=== PATIENT | female | born 1990 | race Caucasian/White ===

== ENCOUNTER 2017-10-28 17:35 | Emergency (ER) | payer SELFPAY ==
--- NOTE | 2017-10-28 18:16 | EDPHYS ---
Physician Documentation [facility] Name: Adalgisa Davalos Age: 27 yrs Sex: Female : 1990 Arrival Date: 10/28/2017 Time: 17:38 Bed 28 Private MD: None, None ED Physician Sammy Álvarez HPI: 10/28 18:11 This 27 yrs old Female presents to ER via Ambulatory with complaints of gs Toothache. 18:11 The patient presents with broken tooth/teeth, pain. The problem is located in the lower gs right second bicuspid and lower right first molar. Onset: The symptoms/episode began/occurred 3 week(s) ago. Duration: The symptoms are continuous. Modifying factors: the symptoms are aggravated by chewing, cold fluids. Associated signs and symptoms: Pertinent negatives: dysphagia, fever, redness in area, swelling. Severity of symptoms: At their worst the symptoms were moderate, in the emergency department the symptoms are unchanged. The patient has experienced similar episodes in the past, a few times. saw dentist on abx ran out of t3, has appt with dentist tomorrow. 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 - Social history:: Smoking status: Patient uses tobacco products, denies chronic smoking, but will smoke occasionally. - Ebola Screening: : Patient denies travel to an Ebola-affected area in the 21 days before illness onset. ROS: 18:11 All other systems are negative. gs Exam: 18:11 Head/Face: Normocephalic, atraumatic. Neck: Trachea midline, no thyromegaly or masses gs palpated, and no cervical lymphadenopathy. Supple, full range of motion without nuchal rigidity, or vertebral point tenderness. No Meningismus. Cardiovascular: Regular rate and rhythm with a normal S1 and S2. No gallops, murmurs, or rubs. Normal PMI, no JVD. No pulse deficits. Respiratory: Lungs have equal breath sounds bilaterally, clear to auscultation and percussion. No rales, rhonchi or wheezes noted. No increased work of breathing, no retractions or nasal flaring. 18:11 Constitutional: The patient appears alert, awake. 18:11 ENT: Dental exam: dental caries, that is moderate, diffusely, fractured teeth are noted, diffusely, gum swelling, not appreciated. Vital Signs: 17:42 BP 139 / 91; Pulse 77; Resp 17; Temp 98.7(TE); Pulse Ox 100% on R/A; Pain 10/10; tw2 MDM: 17:53 Patient medically screened. 18:11 Differential diagnosis: dental caries, dental abscess. Data reviewed: vital signs, nurses notes. Response to treatment: There is no appreciated change of the patient's symptoms at this time, and as a result, I will discharge patient. Administered Medications: No medications were administered Disposition: 10/28/17 18:15 Discharged to Home. Impression: Encounter for screening, unspecified. - Condition is Stable. - Medication Reconciliation Form, Thank You Letter, Antibiotic Education, Prescription Opioid Use form. - Follow up: Private Physician; When: Tomorrow; Reason: Re-evaluation by your physician. Signatures: Sindi Lindsay RN RN tw2 Sammy Álvarez MD MD Robb Dawson RN RN rv Corrections: (The following items were deleted from the chart) 18:19 18:15 10/28/2017 18:15 Discharged to Home. Impression: Encounter for screening, rv unspecified. Condition is Stable. Forms are Medication Reconciliation Form, Thank You Letter, Antibiotic Education, Prescription Opioid Use. Follow up: Private Physician; When: Tomorrow; Reason: Re-evaluation by your physician.
--- NOTE | 2017-10-28 18:16 | ER ---
Nurse's Notes [facility] Name: Adalgisa Davalos Age: 27 yrs Sex: Female : 1990 Arrival Date: 10/28/2017 Time: 17:38 Bed 28 Private MD: None, None Diagnosis: Encounter for screening, unspecified Presentation: 10/28 17:41 Presenting complaint: Patient states: i have a tooth ache, on the right side, i have tw2 dentist appt tomorrow but i cant sleep because i am in pain. Transition of care: patient was not received from another setting of care. Onset of symptoms was October 28, 2017. Risk Assessment: Do you want to hurt yourself or someone else? Patient reports no desire to harm self or others. Initial Sepsis Screen: Does the patient meet any 2 criteria? No. Patient's initial sepsis screen is negative. Does the patient have a suspected source of infection? No. Patient's initial sepsis screen is negative. Care prior to arrival: None. 17:41 Method Of Arrival: Ambulatory tw2 17:41 Acuity: PATRIZIA 4 tw2 Triage Assessment: 18:01 General: Appears in no apparent distress. comfortable. EENT: Reports pain in right jaw rv and left jaw Pain is 10 out of 10 on a pain scale. 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 - Social history:: Smoking status: Patient uses tobacco products, denies chronic smoking, but will smoke occasionally. - Ebola Screening: : Patient denies travel to an Ebola-affected area in the 21 days before illness onset. Screenin:01 Abuse screen: Denies threats or abuse. Denies injuries from another. Nutritional rv screening: No deficits noted. Tuberculosis screening: No symptoms or risk factors identified. Fall Risk None identified. Assessment: 18:00 General: Appears in no apparent distress. comfortable, Behavior is calm, cooperative. rv Pain: Complains of pain in right side of the face Pain currently is 10 out of 10 on a pain scale. Neuro: Level of Consciousness is awake, alert, obeys commands, Oriented to person, place, time, situation. Cardiovascular: Capillary refill < 3 seconds. Respiratory: Airway is patent. GI: No signs and/or symptoms were reported involving the gastrointestinal system. : No signs and/or symptoms were reported regarding the genitourinary system. EENT: No deficits noted. Derm: Skin is intact. Vital Signs: 17:42 BP 139 / 91; Pulse 77; Resp 17; Temp 98.7(TE); Pulse Ox 100% on R/A; Pain 10/10; tw2 ED Course: 17:38 Patient arrived in ED. sb2 17:39 None, None is Private Physician. sb2 17:42 Triage completed. tw2 17:42 Arm band placed on. tw2 17:47 Sammy Álvarez MD is Attending Physician. 18:02 Patient has correct armband on for positive identification. Bed in low position. Call rv light in reach. Side rails up X 1. Adult w/ patient. Pulse ox on. NIBP on. 18:18 No provider procedures requiring assistance completed. Patient did not have IV access rv during this emergency room visit. Administered Medications: No medications were administered Outcome: 18:15 Discharge ordered by . 18:18 Eloped from waiting room, before seeing physician Time discovered patient gone: October at 18:15 18:18 Condition: unchanged 18:19 Patient left the ED. rv Signatures: Sindi Lindsay, RN RN tw2 Sammy Álvarez MD MD GaspervenkatEleanor sb2 Robb Dawson RN RN rv Corrections: (The following items were deleted from the chart) 18:02 18:00 Pain: Complains of pain in left side of the face Pain currently is 10 out of 10 rv on a pain scale. rv
== END 2017-10-28 18:19 | disposition home or self-care (01) ==
LOC: ER 17:35
DX: Z13.9 Encounter for screening, unspecified (principal); Z72.0 Tobacco use
CPT/HCPCS: 99282

== ENCOUNTER 2019-04-21 22:14 | Emergency (ER) | payer OTHER, SELFPAY ==
--- OUTSIDE RECORDS SUMMARY | 2019-04-21 22:15 | XMS REPORT ---
:1990 [facility] Address [address] [place] [address] [address] [place] [address] Care Team Providers Name Role Phone Unavailable Unavailable Unavailable Problems This patient has no known problems. Allergies, Adverse Reactions, Alerts This patient has no known allergies or adverse reactions. Medications This patient has no known medications.
--- OUTSIDE RECORDS SUMMARY | 2019-04-21 22:16 | XMS REPORT | Continuity of Care Document ---
:1990 Author Organization [facility] Address [address] [place] [address] Phone Unavailable Care Team Providers Name Role Phone PHYSICIAN, NO Primary Care Physician Unavailable Insurance Providers Guarantor Adalgisa Sheriff Address [address] [place] [address] Email NONE Payer Self Pay Insurance Subscriber's Name Adalgisa Sheriff Relationship Self / Same As Patient Group Number NA Group Name NA Advance Directives Directive Response Recorded Date/Time Advance Directive on File No 10/12/18 11:40am Patient/Family Given Education Material R/T Y - 10/12/18...[place] 10/12/18 11: 40am Directives? Chief Complaint and Reason for Visit Chief Complaint Female Urogenital Problems Reason for Visit Threatened in early Problems Active ProblemsNo active problem information available. Past Problems Medical Problem Onset Date Status Cellulitis of jaw, right Unknown Acute Dental infection Unknown Acute Pain, dental Unknown Acute Threatened in early Unknown Acute Medications Current Home Medications Medication Dose Units Route Directions Days Qty Instructions Start Date Clindamycin Hcl 300 Mg ORAL Every 8 Hours 30 Tablet 11/01/17 (Cleoci 300 Mgn) for 300 Mg Cap Cellulitis/Absc ess Hydrocodone-Acet 1 Tab ORAL Every 6 Hours 30 Tablet 11/01/17 aminophen As Needed as 10/325MG * needed for Pain ([place] 10/325MG *) 1 Tab Tab Social History Smoking Status Start Date Stop Date Current every day smoker Hospital Discharge Instructions No hospital discharge instruction information available. Plan of Care Discharge Date 10/12/18 2:30pm Instructions/Education Provided Threatened Miscarriage, [id number] First Trimester of , Fjla-ra-[id number] Forms Provided Portal Welcome Letter Prescriptions See Medication Section Referrals NO PHYSICIAN Additional Instructions/Education BED REST x 3 DAYS. IF ANY WORSENING IN CONDITION, SEEK IMMEDIATE MEDICAL ATTENTION. DRINK MORE FLUIDS TO STAY HYDRATED. 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 CAN TAKE DRAMAMINE (available O.T.C.) NEEDED FOR NAUSEA OR VOMITING IN Functional Status No functional status information available. Allergies, Adverse Reactions, Alerts No known allergies. Immunizations No immunization information available. Vital Signs Acute Vital Signs Vital Response Date/Time Blood Pressure 104/60 mm Hg 10/12/2018 2:30pm Pulse Pulse Rate (adult) 55 beats per minute (60 - 100) 10/12/2018 2:30pm Respiratory Rate 20 breaths per minute (10 - 24) 10/12/2018 2:30pm Temperature Source Oral 10/12/2018 2:30pm Height 5 ft 1 in 10/12/2018 11:40am Weight 109 lb 10/12/2018 11:40am Body Mass Index 20.6 kg/m^2 10/12/2018 11:40am Results Laboratory Results Test Name Result Units Flags Reference Collection Result Comments Date/Time Date/Time White Blood Count 7.6 K/ul 4.0-11.5 10/12/2018 10/12/2018 12:28pm 12:38pm Red Blood Count 3.84 M/ul 3.80-5.20 10/12/2018 10/12/2018 12:28pm 12:38pm Hemoglobin 11.5 g/dL 10.5-15.7 10/12/2018 10/12/2018 12:28pm 12:38pm Hematocrit 35.1 % 34.0-50.0 10/12/2018 10/12/2018 12:28pm 12:38pm Mean Corpuscular 91.4 fl 86-100 10/12/2018 10/12/2018 Volume 12:28pm 12:38pm Mean Corpuscular 29.9 pg 26.2-33.4 10/12/2018 10/12/2018 Hemoglobin 12:28pm 12:38pm Mean Corpuscular 32.8 g/dL 30-34 10/12/2018 10/12/2018 Hemoglobin Concent 12:28pm 12:38pm Red Cell 11.6 % L 12.0-15.5 10/12/2018 10/12/2018 Distribution Width 12:28pm 12:38pm Platelet Count 297 K/uL 165-450 10/12/2018 10/12/2018 12:28pm 12:38pm Mean Platelet 10.1 fL 9.4-12.6 10/12/2018 10/12/2018 Volume 12:28pm 12:38pm Neutrophils (%) 67.2 % 44.4-80.1 10/12/2018 10/12/2018 (Auto) 12:28pm 12:38pm Immature 0.4 % 0.0-0.4 10/12/2018 10/12/2018 Granulocyte % 12:28pm 12:38pm (Auto) Lymphocytes (%) 22.5 % 10.0-50.0 10/12/2018 10/12/2018 (Auto) 12:28pm 12:38pm Monocytes (%) 9.0 % 3.6-12.0 10/12/2018 10/12/2018 (Auto) 12:28pm 12:38pm Eosinophils (%) 0.4 % 0.0-5.4 10/12/2018 10/12/2018 (Auto) 12:28pm 12:38pm Basophils (%) 0.5 % 0.1-1.2 10/12/2018 10/12/2018 (Auto) 12:28pm 12:38pm Neutrophils # 5.07 K/uL 1.56-6.13 10/12/2018 10/12/2018 (Auto) 12:28pm 12:38pm Absolute Immature 0.0 K/uL 0.0-0.03 10/12/2018 10/12/2018 Granulocyte (auto 12:28pm 12:38pm Lymphocytes # 1.7 K/uL 1.18-3.74 10/12/2018 10/12/2018 (Auto) 12:28pm 12:38pm Monocytes # (Auto) 0.68 K/uL 0.24-0.86 10/12/2018 10/12/2018 12:28pm 12:38pm Eosinophils # 0.03 K/uL L 0.04-0.36 10/12/2018 10/12/2018 (Auto) 12:28pm 12:38pm Basophils # (Auto) 0.04 K/uL 0.01-0.08 10/12/2018 10/12/2018 12:28pm 12:38pm Nucleated Red 0 /100 0-0.2 10/12/2018 10/12/2018 Blood Cells % WBC 12:28pm 12:38pm Nucleated Red 0 K/uL 0 10/12/2018 10/12/2018 Blood Cells # 12:28pm 12:38pm Urine Color YELLOW 10/12/2018 10/12/2018 11:44am 12:46pm Urine Appearance SL CLOUDY A CLEAR 10/12/2018 10/12/2018 11:44am 12:46pm Urine Glucose (UA) NEGATIVE NEGATIVE 10/12/2018 10/12/2018 11:44am 12:46pm Urine Bilirubin NEGATIVE NEGATIVE 10/12/2018 10/12/2018 11:44am 12:46pm Urine Ketones TRACE NEGATIVE 10/12/2018 10/12/2018 11:44am 12:46pm Urine Specific 1.025 1.003-1.03 10/12/2018 10/12/2018 [place] 0 11:44am 12:46pm Urine Blood NEGATIVE NEGATIVE 10/12/2018 10/12/2018 11:44am 12:46pm Urine pH 6.500 5-9 10/12/2018 10/12/2018 11:44am 12:46pm Urine Protein TRACE NEGATIVE 10/12/2018 10/12/2018 11:44am 12:46pm Urine Urobilinogen NORMAL mg/dL 0.2-1.0 10/12/2018 10/12/2018 11:44am 12:46pm Urine Nitrate NEGATIVE NEGATIVE 10/12/2018 10/12/2018 11:44am 12:46pm Urine Leukocyte NEGATIVE NEGATIVE 10/12/2018 10/12/2018 Esterase 11:44am 12:46pm Urine RBC 1-5 /hpf 0-5 10/12/2018 10/12/2018 11:44am 12:46pm Urine WBC 1-5 /hpf 0-5 10/12/2018 10/12/2018 11:44am 12:46pm Urine Epithelial 15-19 /hpf 0-5 10/12/2018 10/12/2018 Cells 11:44am 12:46pm Urine Bacteria SMALL(1+) /hpf None 10/12/2018 10/12/2018 Detect 11:44am 12:46pm Urine Casts 20-29 /lpf H None 10/12/2018 10/12/2018 Detect 11:44am 12:46pm Urine Culture NO. 10/12/2018 10/12/2018 >10 EPITHELIAL CELLS/HPF. INDICATIVE OF CONTAMINATED URINE. Reflexed CONTAMINAT 11:44am 12:46pm CULTURE WILL NOT BE PERFORMED. PLEASE RECOLLECT IF CULTURE ED. IS DEEMED NECESSARY. Urine Mucus 1+ /lpf None 10/12/2018 10/12/2018 Detect 11:44am 12:46pm Urine Pathogenic Cellular /hpf A None 10/12/2018 10/12/2018 Casts casts Detect 11:44am 12:46pm (1-5) Random Glucose 87 mg/dL 74-106 10/12/2018 10/12/2018 12:28pm 12:51pm Blood Urea 8 mg/dL 6-20 10/12/2018 10/12/2018 Nitrogen 12:28pm 12:51pm Serum Osmolality 273 L 280-300 10/12/2018 10/12/2018 12:28pm 12:51pm Creatinine 0.4 mg/dL L 0.50-0.90 10/12/2018 10/12/2018 12:28pm 12:51pm Glomerular > 60.00 10/12/2018 10/12/2018 GFR RESULTS ARE REPORTED IN mL/min/1.73m2. Filtration Rate 12:28pm 12:51pm Calc Normal GFR: >60mL/min Moderately decreased GFR: 30-59 mL/min Severely decreased GFR: 15-29 mL/min Kidney Failure (or Dialysis): <15 mL/min The calculated eGFR is not valid for patients younger than 18 years or older than 75 years. BUN/Creatinine 20.0 12-20 10/12/2018 10/12/2018 Ratio 12:28pm 12:51pm Sodium Level 138 mmol/L 135-145 10/12/2018 10/12/2018 12:28pm 12:51pm Potassium Level 3.7 mmol/L 3.5-5.2 10/12/2018 10/12/2018 12:28pm 12:51pm Chloride Level 104 mmol/L 98-108 10/12/2018 10/12/2018 12:28pm 12:51pm Carbon Dioxide 24 mmol/L 21-32 10/12/2018 10/12/2018 Level 12:28pm 12:51pm Anion Gap 13.7 mEq/L 12-20 10/12/2018 10/12/2018 12:28pm 12:51pm Calcium Level 9.6 mg/dL 8.6-10.0 10/12/2018 10/12/2018 12:28pm 12:51pm Total Protein 6.6 g/dL 6.6-8.7 10/12/2018 10/12/2018 12:28pm 12:51pm Albumin 4.5 g/dL 3.5-5.2 10/12/2018 10/12/2018 12:28pm 12:51pm Globulin 2.1 gm/dL 10/12/2018 10/12/2018 12:28pm 12:51pm Albumin/Globulin 2.1 >1.0 10/12/2018 10/12/2018 Ratio 12:28pm 12:51pm Total Bilirubin 0.3 mg/dL 0.0-1.2 10/12/2018 10/12/2018 12:28pm 12:51pm Aspartate Amino 16 U/L 15-32 10/12/2018 10/12/2018 Transf (AST/SGOT) 12:28pm 12:51pm Alanine 10 U/L 0-33 10/12/2018 10/12/2018 Aminotransferase 12:28pm 12:51pm (ALT/SGPT) Total Alkaline 52 U/L 35-105 10/12/2018 10/12/2018 Phosphatase 12:28pm 12:51pm Beta [place]CG, 366[address].0 mIU/mL H 0-5 10/12/2018 10/12/2018 REFERENCE RANGES Quantitative 12:28pm 1:43pm NORMAL: NON- PREMENOPAUSAL POST-MENOPAUSAL <7 Weeks of Gestation Expected Result mIU/mL 3 5.8 - 71.2 4 9.5 - 750 5 217 - 7,138 6 158 - 31,795 7 3697 - 163,563 8 32,065 - 149,571 9 63,803 - 151,410 10 46,509 - 186,977 12 27,832 - 210,612 14 13,950 - 62,530 15 12,039 - 70,971 16 9,040 - 56,451 17 8,175 - 55,868 18 8,099 - 58,176 Urine HCG, POSITIVE NEG 10/12/2018 10/12/2018 Qualitative 11:44am 12:30pm Procedures Procedure Status Date Provider(s) Transvaginal obstetrical ultrasound Completed 10/12/18 ROSALINA NIELSEN MD Encounters Encounter Location Arrival/Admit Date Discharge/Depart Date Attending Provider Departed [place] 10/12/18 11:34am 10/12/18 2:30pm ROSALINA NIELSEN MD Emergency Room [facility] Recent Diagnosis
--- OUTSIDE RECORDS SUMMARY | 2019-04-21 22:16 | XMS REPORT | Summary of Care ---
:1990 Author Organization [facility] Address [address] [place] [address] Care Team Providers Name Role Phone Pcp, Patient Does Not Have A Primary Care Provider Encounter Details Date Type Department Care Team Description 10/14/2018 Orders Only [facility] Doctor Unassigned, No [address] [facility] [place] [address] [address] [place] [address] Allergies Not on Filedocumented as of this encounter (statuses as of 10/14/2018) Medications Not on filedocumented as of this encounter (statuses as of 10/14/2018) Active Problems Not on filedocumented as of this encounter (statuses as of 10/14/2018) Social History Tobacco Use Types Packs/Day Years Used Date Never Assessed Sex Assigned at Date Recorded Not on file Job Start Date Occupation Industry Not on file Not on file Not on file Travel History Travel Start Travel End No recent travel history available. documented as of this encounter Last Filed Vital Signs Not on filedocumented in this encounter Plan of Treatment Date Type Specialty Care Team Description 10/14/2018 Initial Visit [facility] Rosy Dill, CUTTING TABLE OPERATOR [address] [place] [address] [phone] Health Maintenance Due Date Last Done Comments VARICELLA VACCINES (1 of 2 - 13+ 2003 2-dose series) DTaP,Tdap,and Td Vaccines (1 - 2009 Tdap) PAP SMEAR 2011 INFLUENZA VACCINE 11/13/2018 PNEUMOCOCCAL 0-64 YEARS COMBINED Aged Out No longer eligible based on SERIES patient's age to complete this topic documented as of this encounter Procedures Procedure Name Priority Date/Time Associated Diagnosis Comments NOTICE OF PRIVACY Routine 10/14/2018 1:20 PM CDT PRACTICES documented in this encounter Results Not on filedocumented in this encounter Insurance Payer Benefit Plan Subscriber ID Effective Phone Address Type / Group Dates MEDICAID MEDICAID PENDING Effective for [address] [place] [address] Pending PEND[place] [address] [facility] MEDICAID OF xxxxxxxxx 2018-Pres [phone] [id number] Medicaid [place] ent [address] [place] [address] documented as of this encounter
--- OUTSIDE RECORDS SUMMARY | 2019-04-21 22:16 | XMS REPORT | Summary of Care ---
:1990 Author Organization [facility] Address [address] [place] [address] Care Team Providers Name Role Phone Pcp, Patient Does Not Have A Primary Care Provider Reason for Referral (Routine) Status Reason Specialty Diagnoses / Referred By Referred To Procedures Contact Contact New Request Maternal Diagnoses High-risk in first trimester Rosy Dill Medicine Procedures CONSULT MATERNAL MEDICINE ULTRASOUND Preferred Location: RITO Valentino [address] [facility] [place] [address] Reason for Visit Reason Comments New OB Visit Encounter Details Date Type Department Care Team Description 10/14/2018 [facility] High-risk in first trimester (Primary Dx); Visit [facility] Body mass index (BMI) of 19.0 to 19.9 in adult; [address] History of delivery, currently ; [facility] History of delivery; [address] [place], [place] with inconclusive viability, single or unspecified fetus [phone] Allergies No Known Allergiesdocumented as of this encounter (statuses as of 10/14/2018) Medications Medication Sig Dispensed Refills Start Date End Date Status PNV 67-iron Take 1 capsule 30 capsule 11 10/14/2018 Active ps-folate by mouth no.1-dha (VITAFOL daily. ULTRA) 29 mg iron- 1 mg-200 mg CapIndications: High-risk in first trimester vit Take by 0 10/14/2018 Discontinued calc,iron,folic mouth. ( VITAMIN ORAL) documented as of this encounter (statuses as of 10/14/2018) Active Problems Problem Noted Date High-risk in first trimester 10/14/2018 Body mass index (BMI) of 19.0 to 19.9 in adult 10/14/2018 History of delivery, currently 10/14/2018 History of delivery 10/14/2018 Overview: At 35 weeks, patient reports was on NST and not reactive and intolerance to induction, no history of PTL or PPROM Estimated Date of Delivery Comments Yes 06/08/2019 Based on last menstrual period of 09/01/2018 (Approximate) documented as of this encounter (statuses as of 10/14/2018) Social History Tobacco Use Types Packs/Day Years Used Date Former Smoker Cigarettes Quit: 10/2017 Smokeless Tobacco: Never Used Alcohol Use Drinks/Week oz/Week Comments Never Alcohol Habits Answer Date Recorded How often do you have a drink containing alcohol? Never 10/14/2018 How many drinks containing alcohol do you have on a typical Not asked day when you are drinking? How often do you have six or more drinks on one occasion? Not asked Estimated Date of Delivery Comments Yes 06/08/2019 Based on last menstrual period of 09/01/2018 (Approximate) Sex Assigned at Date Recorded Not on file Job Start Date Occupation Industry Not on file Not on file Not on file Travel History Travel Start Travel End No recent travel history available. documented as of this encounter Last Filed Vital Signs Vital Sign Reading Time Taken Comments Blood Pressure 90/58 10/14/2018 1:39 PM CDT Pulse 60 10/14/2018 1:39 PM CDT Temperature 37.1 C (98.8 F) 10/14/2018 1:39 PM CDT Respiratory Rate 18 10/14/2018 1:39 PM CDT Oxygen Saturation - - Inhaled Oxygen Concentration - - Weight 47.3 kg (104 lb 6 oz) 10/14/2018 1:39 PM CDT Height 154.9 cm (5' 1") 10/14/2018 1:39 PM CDT Body Mass Index 19.72 10/14/2018 1:39 PM CDT documented in this encounter Progress Notes Rosy Dill FNP - 10/14/2018 1:30 PM CDT Chief complaint: Chief Complaint Patient presents with New OB Visit HPI CC: Initial Visit Adalgisa Davalos is a 28 year old, , /White female. Patient's last menstrual period was 09/01/2018 (approximate). She is 6w1d with an intrauterine . Her Estimated Date of Delivery: 06/08/19. She is being seen today for her first obstetrical visit. Pt did go to [facility] ER on 10/12/18 for spotting and cramping. She brings an ultrasound report today, see below. She has no complaints today. Denies current physical, emotional or sexual abuse. Patient denies recent foreign travel. Histories OB History Para Term AB Living 2 1 1 1 SAB TAB Ectopic Multiple Live Births 1 # Outcome Date GA Lbr Keshav/2nd Weight Sex Delivery Anes PTL Lv 2 Current 1 04/16/07 35w0d 4 lb 5 oz (1.956 kg) F , V RATNA Past Medical History: Diagnosis Date Anemia ongoing, Family History Problem Relation Age of Onset No Significant Medical Problems Mother No Significant Medical Problems Sister No Significant Medical Problems Brother No Significant Medical Problems Maternal Aunt Cancer Maternal Uncle Diabetes Maternal Uncle Other - see comments Maternal Uncle copd Cancer Maternal Grandmother Other - see comments Maternal Grandmother copd Heart Maternal Grandfather Diabetes Maternal Grandfather Family Status Relation Name Status Mo Alive Fa Other unknown Sis Alive Bro Alive MAunt (Not Specified) MUnc PAunt Other PUnc Other MGMo Alive MGFa Alive Past Surgical History: Procedure Laterality Date SECTION 04/16/2007 Social History Socioeconomic History Marital status: Single Spouse name: Not on file Number of children: Not on file Years of education: Not on file Highest education level: Not on file Occupational History Not on file Social Needs Financial resource strain: Not on file Food insecurity: Worry: Not on file Inability: Not on file Transportation needs: Medical: Not on file Non-medical: Not on file Tobacco Use Smoking status: Former Smoker Types: Cigarettes Last attempt to quit: 10/2017 Years since quittin.0 Smokeless tobacco: Never Used Substance and Sexual Activity Alcohol use: Never Frequency: Never Drug use: Never Sexual activity: Yes Partners: Male control/protection: None Comment: last sexual intercourse 10/07/2018 Lifestyle Physical activity: Days per week: Not on file Minutes per session: Not on file Stress: Not on file Relationships Social connections: Talks on phone: Not on file Gets together: Not on file Attends yazidi service: Not on file Active member of club or organization: Not on file Attends meetings of clubs or organizations: Not on file Relationship status: Not on file Intimate partner violence: Fear of current or ex partner: Not on file Emotionally abused: Not on file Physically abused: Not on file Forced sexual activity: Not on file Other Topics Concern Not on file Social History Narrative Patient lives alone with daughter. Confucianist preference: Tenriism. Pt has not pets in the home. Social History Substance and Sexual Activity Sexual Activity Yes Partners: Male control/protection: None Comment: last sexual intercourse 10/07/2018 Genetic Screen Autism / Mental Retardation: No Milena Disease: No Congenital Heart Defect: No Cystic Fibrosis: No Down Syndrome: No Familial Dysautonomia: No Hemophilia or other Blood Disorders: No [place] Chorea: No Maternal Metabolic Disorder--specify (eg. Type 1 Diabetes, PKU): No Muscular Dystrophy: No Neural Tube Defect: No Recurrent Loss or a Stillbirth: No Sickle Cell Disease or Trait: No Abdiaziz Sachs: No Teratological Substances (specify type & strength/dose) since LMP: No Thalassemia: No Other Inherited Genetic or Chromosomal Disorder (specify): No No Significant History of Genetic Disorders: No Significant History of Genetic Disorders Labs Labs are pending. Radiology Radiology pending. I have reviewed the patient's radiology. ER US from 10/12/18 10/12/18 Normal appearance of intrauterine gestational sac. No evidence of subchorionic hemorrhage. No pole is visualized. Gestational sac c/w 6w1d gestation. No uterine or ovarian abnormality Allergies Adalgisa has No Known Allergies. Medications Adalgisa has a current medication list which includes the following prescription(s) : vit calc,iron,folic. Review of Systems Constitutional: Negative. Negative for appetite change, fatigue and fever. HENT: Negative. Eyes: Negative. Negative for visual disturbance. Respiratory: Negative. Breasts: Negative. Cardiovascular: Negative. Negative for palpitations and leg swelling. Gastrointestinal: Negative. Negative for abdominal pain, constipation, diarrhea , nausea and vomiting. Genitourinary: Negative. Negative for dysuria, vaginal bleeding, vaginal discharge and pelvic pain. Musculoskeletal: Negative. Skin: Negative. Negative for rash. Neurological: Negative. Negative for dizziness, light-headedness and headaches. Psychiatric/Behavioral: Negative. Endocrine: Endocrine negative BP 90/58 (BP Location: Right arm, Patient Position: Sitting, BP CUFF SIZE: Adult Small) | Pulse 60| Temp 37.1 C (98.8 F) (Oral) | Resp 18 | Ht 5' 1 " (1.549 m) | Wt 104 lb 6 oz (47.3 kg) | LMP 09/01/2018 (Approximate) | BMI 19.72 kg/m Pregravid BMI: 20.6 Physical Exam Vitals reviewed. Constitutional: She is oriented to person, place, and time. She appears well- developed and well-nourished. Her body habitus is normal. See flowsheet Neck: No thyroid nodules and no thyromegaly palpated. Cardiovascular: Regular rate and rhythm. No murmur auscultated. No peripheral edema present. Pulmonary/Chest: Breath sounds clear to auscultation. Normal inspiratory effort. Abdominal: Abdomen is soft. No mass palpated. No tenderness present. There is no hepatosplenomegaly. Neuro/Psychiatric: She has a normal mood and affect. She is oriented to person, place, and time. Skin: Skin normal. No lesion and no rash present. Tattoos and multiple piercings present Breast: Right breast exhibits no mass, no nipple discharge and no tenderness. Left breast exhibits no mass, no nipple discharge and no tenderness. Normal left breast and normal right breast External genitalia: Normal external genitalia appropriate for age. No labial lesion. Bladder: No tenderness. Normal bladder Vagina:Normal vagina. No lesion inspected. No abnormal vaginal discharge found. Cervix: Normal cervix. No lesion. No tenderness and no discharge present. Uterus: Uterus is normal size, normal position and non-tender. Normal uterus Adnexa: Right adnexa without tenderness. Left adnexa without tenderness. Normal left adnexa and normal right adnexa PHYSICAL: General Exam: HEENT: Normal Thyroid: Normal Lymph Node: Normal Neurological: Normal Heart: Normal Lungs: Normal Breasts: Normal Abdomen: Normal Skin: Normal Extremities: Normal Pelvic Exam: Vulva: Normal Vagina: Normal Cervix: Normal SVE closed/thick/high Membrane status: Intact Uterus: 6 Weeks Adnexa: Normal Rectum: Normal Spines: Average Subpubic Arch: Normal Assessment/Plan 1. High-risk in first trimester 6w1d by LMP and ER US TWG discussed Discussed use of Deet Repellent Initiate Vitamins Increase Fluid Intake. Minimum of 8 water bottles daily. Viability/dating ultrasound ordered. Pt declines first trimester screen. - POCT TEST - POCT URINALYSIS W/O SPECIFIC GRAVITY - GLUCOSE 1 HOUR POST PRANDIAL - CBC WITH DIFF - HEPATITIS B SURFACE ANTIGEN - HIV 1/2 AG-AB WITH REFLEX - WORKUP, BLOOD BANK - RUBELLA SCREEN (ZOE) IGG - URINE CULTURE - VZV ANTIBODY SCREEN - GALV ONLY - SYPHILIS IGG/IGM - POCT URINALYSIS W/O SPECIFIC GRAVITY; Standing - CBC WITH DIFFERENTIAL - PAP Smear-Liquid Based - GC & CHLAMYDIA AMPLIFIED ASSAY - TRICHOMONAS AMPLIFIED ASSAY - PNV 67-iron ps-folate no.1-dha (VITAFOL ULTRA) 29 mg iron- 1 mg-200 mg Cap; Take 1 capsule by mouth daily. Dispense: 30 capsule; Refill: 11 - CONSULT MATERNAL MEDICINE ULTRASOUND Preferred Location: [place] 2. Body mass index (BMI) of 19.0 to 19.9 in adult 3. History of delivery, currently C/S x 1 for intolerance. Briefly discussed ERCS vs TOLAC, continue to address at future visits. 4. History of delivery Pt reports was being monitored routinely in previous , at 35 weeks the baby's heart rate was concerning so they tried to induce her, intolerance to labor ending in delivery. No history of PTL or PPROM. 5. with inconclusive viability, single or unspecified fetus Gestational sac at 6w1d with no pole on ultrasound report provided by patient today. Denies any bleeding or cramping at this time. Follow up ultrasound ordered Return to clinic in 4 weeks. Discussed treatment options. Medications as ordered. Reviewed patient instructions and provided printed copy. at 6w1d This visit did not involve counseling and coordination that comprised more than 50% of the visit time. Milena Lema RN - 10/14/2018 1:30 PM CDTPatient is 28 year old female here for current . Patient is . 1) Previous delivery methods in [place] 2) Patient is not experiencing cramping 3) Patient is not experiencing bleeding. 4) LMP 5) Last Pap was: unknown Results: unknown 6) Have you had a flu vaccine this season? No 7) PPD candidate? No 8) Patient has no complaints at this time. Patient did have spotting and cramping went to ER on 10/12/2018. US report given. 9) Patient denies history of physical, emotional, or sexual abuse. Patient states she currently feels safe at home. NOB packet given and reviewed with patient. documented in this encounter Plan of Treatment Date Type Specialty Care Team Description 11/11/2018 Routine Visit OB Satellites Rosy Dill, SCHOOL ADJUSTMENT COUNSELOR [address] [place] [address] [phone] Name Type Priority Associated Diagnoses Date/Time GLUCOSE 1 HOUR POST LAB Routine High-risk in 10/14/2018 2:41 PM PRANDIAL first trimester CDT CBC WITH DIFF LAB Routine High-risk in 10/14/2018 2:41 PM first trimester CDT HEPATITIS B SURFACE LAB Routine High-risk in 10/14/2018 2:41 PM ANTIGEN first trimester CDT HIV 1/2 AG-AB WITH REFLEX LAB Routine High-risk in 10/14/2018 2: 41 PM first trimester CDT RUBELLA SCREEN (ZOE) IGG LAB Routine High-risk in 10/14/2018 2 :41 PM first trimester CDT URINE CULTURE LAB Routine High-risk in 10/14/2018 2:46 PM first trimester CDT VZV ANTIBODY SCREEN LAB Routine High-risk in 10/14/2018 2:41 PM first trimester CDT GALV ONLY - SYPHILIS LAB Routine High-risk in 10/14/2018 2:41 PM IGG/IGM first trimester CDT CBC WITH DIFFERENTIAL LAB Routine High-risk in 10/14/2018 2:41 PM first trimester CDT PAP Smear-Liquid Based LAB Routine High-risk in 10/14/2018 2:46 PM first trimester CDT GC & CHLAMYDIA AMPLIFIED LAB Routine High-risk in 10/14/2018 2: 46 PM ASSAY first trimester CDT TRICHOMONAS AMPLIFIED LAB Routine High-risk in 10/14/2018 2:46 PM ASSAY first trimester CDT Name Type Priority Associated Diagnoses Order Schedule WORKUP, BLOOD LAB Routine High-risk in Ordered: 2018 BANK first trimester POCT URINALYSIS W/O LAB Routine High-risk in 20 Occurrences starting SPECIFIC GRAVITY first trimester 10/14/2018 until 10/15/2019 Health Maintenance Due Date Last Done Comments VARICELLA VACCINES (1 of 2 - 13+ 2003 2-dose series) DTaP,Tdap,and Td Vaccines (1 - 2009 Tdap) PAP SMEAR 2011 INFLUENZA VACCINE 11/13/2018 PNEUMOCOCCAL 0-64 YEARS COMBINED Aged Out No longer eligible based on SERIES patient's age to complete this topic documented as of this encounter Procedures Procedure Name Priority Date/Time Associated Comments Diagnosis POCT URINALYSIS W/O Routine 10/14/2018 1:46 PM High-risk Results for this SPECIFIC GRAVITY CDT in first trimester procedure are in the results section. POCT TEST Routine 10/14/2018 1:46 PM High-risk Results for this CDT in first trimester procedure are in the results section. documented in this encounter Results POCT URINALYSIS W/O SPECIFIC GRAVITY (10/14/2018 1:46 PM CDT) POCT PH U 5 5 - 8 mg/dl POCT U LEUK EST neg Negative - Negative POCT U NIT neg Negative - Negative POCT U PROT neg Negative - Negative POCT U GLU neg Negative - Negative POCT U KETONE neg Negative - Negative POCT U BLD neg Negative - Negative Specimen Urine - URINE, CLEAN CATCH POCT TEST (10/14/2018 1:46 PM CDT) POCT PREG Positive On board controls acceptable Yes with C Line POCT PREG LOT # POCT PREG TEST DATE Specimen Urine - URINE, CLEAN CATCH documented in this encounter Visit Diagnoses Diagnosis High-risk in first trimester - Primary Body mass index (BMI) of 19.0 to 19.9 in adult History of delivery, currently Previous delivery, unspecified as to episode of care or not applicable History of delivery with inconclusive viability, single or unspecified fetus documented in this encounter Insurance Payer Benefit Plan / Subscriber ID Effective Dates Phone Address Type Group [facility] MEDICAID OF xxxxxxxxx 2018-Present [phone] [place] [id number] [place] [phone] documented as of this encounter Advance Directives Name Relationship Healthcare Agent Relationship Communication Letyfredy Davalos Aunt Primary healthcare agent
--- OUTSIDE RECORDS SUMMARY | 2019-04-21 22:16 | XMS REPORT | Summary of Care ---
:1990 Author Organization [facility] Address [address] [place] [address] Care Team Providers Name Role Phone Pcp, Patient Does Not Have A Primary Care Provider Reason for Referral (Routine) Status Reason Specialty Diagnoses / Referred By Referred To Procedures Contact Contact New Request Maternal Diagnoses High-risk in first trimester Rosy Dill Medicine Procedures CONSULT MATERNAL MEDICINE ULTRASOUND Preferred Location: R[facility] Valentino [address] [facility] [place] [address] Reason for Visit Reason Comments New OB Visit Encounter Details Date Type Department Care Team Description [facility]/14[facility]2018 [facility] High-risk in first trimester (Primary Dx); Visit RITO Valentino Body mass index (BMI) of 19.0 to 19.9 in adult; [address] History of delivery, currently ; [facility] History of delivery; [address] [place], [place] with inconclusive viability, single or unspecified fetus [phone] [phone] Allergies No Known Allergiesdocumented as of this [...] first obstetrical visit. Pt did go to [facility] ER on 10/12/18 for spotting and cramping. [...] file Gets together: Not on file Attends roman catholic service: Not on file Active member of [...] History Narrative Patient lives alone with daughter. Cheondoism preference: [employer]aritan. Pt has not pets in the home. Social History Substance and Sexual Activity Sexual Activity Yes Partners: Male control/protection: None Comment: last sexual intercourse 10/07/2018 Genetic Screen Autism / Mental Retardation: No Milena Disease: No Congenital Heart Defect: No Cystic Fibrosis: No Down Syndrome: No Familial Dysautonomia: No Hemophilia or other Blood Disorders: No [place] Chorea: No Maternal Metabolic Disorder--specify (eg. Type [...] - CONSULT MATERNAL MEDICINE ULTRASOUND Preferred Location: [place] 2. Body mass index (BMI) of 19.0 [...] is . 1) Previous delivery methods in [place] 2) Patient is not experiencing cramping 3) [...] 11/11/2018 Routine Visit OB Satellites Rosy Dill, FARMWORKER [employer]IED [employer]OPS [address] [place] [address] [phone] Name Type Priority Associated Diagnoses Date/Time GLUCOSE [...] ID Effective Dates Phone Address Type Group [facility] MEDICAID OF xxxxxxxxx 2018-Present [phone] [address] [place] [id number] [place] [phone] documented as of this encounter Advance Directives Name Relationship Healthcare Agent Relationship Communication Letyfredy Davalos Aunt Primary healthcare agent
--- OUTSIDE RECORDS SUMMARY | 2019-04-21 22:16 | XMS REPORT | Summary of Care ---
:1990 Author Organization [facility] Address [address] [place] [address] Care Team Providers Name Role Phone Rosy DillP Primary Care Provider Reason for Visit Reason Comments ULTRASOUND (Routine) Status Reason Specialty Diagnoses / Referred By Referred To Procedures Contact Contact New Request Maternal Diagnoses High-risk in first trimester Rosy Dill Medicine Procedures CONSULT MATERNAL MEDICINE ULTRASOUND Preferred Location: [facility] Valentino [address] [place] [address] Encounter Details Date Type Department Care Team Description 11/10/2018 Extension Service Advisor Visit [facility] Maternal care for scar from previous delivery, unspecified prior delivery type; Ultrasound- [place] Geneutrouvelis, Uterine size-date discrepancy in first trimester [address] [place], [place] [address] [facility] [id number] [place] [address] Allergies No Known Allergiesdocumented as of this encounter (statuses as of 11/10/2018) Medications Medication Sig Dispensed Refills Start Date End Date Status PNV 67-iron ps-folate Take 1 capsule by 30 capsule 11 10/14/2018 Active no.1-dha (VITAFOL mouth daily. ULTRA) 29 mg iron- 1 mg-200 mg CapIndications: High-risk in first trimester documented as of this encounter (statuses as of 11/10/2018) Active Problems Problem Noted Date Rubella non-immune status, antepartum 10/17/2018 Susceptible to varicella (non-immune), currently 10/17/2018 High-risk in first trimester 10/14/2018 Body mass [...] as of this encounter (statuses as of 11/10/2018) Social History Tobacco Use Types Packs/Day Years Used Date Never Assessed Estimated Date of Delivery Comments Yes 06/08/2019 [...] Description 11/11/2018 Routine Visit OB Satellites Rosy Dlil, BUSINESS PERFORMANCE SPECIALIST [address] [facility] [place] [address] [phone] Health Maintenance Due Date Last Done Comments VARICELLA VACCINES (1 of 2 - 13+ 2003 2-dose series) DTaP,Tdap,and Td Vaccines (1 - 2009 Tdap) INFLUENZA VACCINE (#1) 2018 PAP SMEAR 10/14/2021 10/14/2018 PNEUMOCOCCAL 0-64 YEARS COMBINED Aged Out No longer eligible based on SERIES patient's age to complete this topic documented as of this encounter Results Not on filedocumented in this encounter Visit Diagnoses Diagnosis Maternal care for scar from previous delivery, unspecified prior delivery type Uterine size-date discrepancy in first trimester Uterine size date discrepancy, antepartum condition or complication documented in this encounter Insurance Payer Benefit Plan / Subscriber ID Effective Phone Address Type Group [facility] xxxxxxxxx 2018-Pj SEGUNDO Medicaid HEALTH CHOICE - HEALTH [place] [id number] MANAGED MEDICAID [place], [place] [phone] documented as of this encounter Advance Directives Name Relationship Healthcare Agent Relationship Communication Letyfredy Davalos Aunt Primary healthcare agent
--- OUTSIDE RECORDS SUMMARY | 2019-04-21 22:17 | XMS REPORT | Summary of Care ---
:1990 Author Organization [facility] Address [address] [place] [address] Care Team Providers Name Role Phone Rosy DillP Primary Care Provider Reason for Visit Reason Comments ULTRASOUND (Routine) Status Reason Specialty Diagnoses / Referred By Referred To Procedures Contact Contact New Request Maternal Diagnoses High-risk in first trimester Rosy Dill Medicine Procedures CONSULT MATERNAL MEDICINE ULTRASOUND Preferred Location: R[facility]O Valentino [address] [place] [address] Encounter Details Date Type Department Care Team Description 11/10/2018 Destination Imagination Coordinator Visit [facility] Maternal care for scar from previous delivery, unspecified prior delivery type; Ultrasound- [place] Geneutrouvelis, Uterine size-date discrepancy in first trimester [address] [place], [place] [address] [facility] [address] [id number] [place] [address] Allergies No Known Allergiesdocumented as [...] 11/11/2018 Routine Visit OB Satellites Rosy Dill, BLIND LACER [address] [email or web address] [place] [address] [phone] Health Maintenance Due Date Last Done Comments [...] ID Effective Phone Address Type Group [facility] xxxxxxxxx 2018-Pj SEGUNDO Medicaid HEALTH CHOICE - HEALTH CHOICE nt [id number] MANAGED MEDICAID [place], [place] [id number] documented as of this encounter Advance Directives Name Relationship Healthcare Agent Relationship Communication Letyfredy Davalos Aunt Primary healthcare agent
--- OUTSIDE RECORDS SUMMARY | 2019-04-21 22:17 | XMS REPORT | Summary of Care ---
:1990 Author Organization [facility] Address [address] [place] [address] Care Team Providers Name Role Phone Rosy Dill Primary Care Provider Reason for Visit Reason Comments Care Encounter Details Date Type Department Care Team Description [facility] High-risk in first trimester (Primary Dx); Visit RITO Valentino History of delivery, currently ; [address] History of delivery; [place], [place] A Rubella non-immune status, antepartum; [id number] [place], [place] Susceptible to varicella (non-immune), currently ; [phone] Nausea and vomiting during prior to 22 weeks gestation [phone] Allergies No Known Allergiesdocumented as of this encounter (statuses as of 11/11/2018) Medications Medication Sig Dispensed Refills Start Date End Date Status PNV 67-iron ps-folate Take 1 capsule by 30 capsule 11 10/14/2018 Active no.1-dha (VITAFOL mouth daily. ULTRA) 29 mg iron- 1 mg-200 mg CapIndications: High-risk in first trimester proMETHazine 25 mg Take 1 tablet by 30 tablet 3 11/11/2018 Active tabletIndications: mouth every 4 Nausea and vomiting (four) hours as during prior needed for Nausea to 22 weeks gestation and Vomiting (N/V). documented as of this encounter (statuses as of 11/11/2018) Active Problems Problem Noted Date Rubella non-immune [...] as of this encounter (statuses as of 11/11/2018) Social History Tobacco Use Types Packs/Day Years [...] Sign Reading Time Taken Comments Blood Pressure 99/64 11/11/2018 2:21 PM CDT Pulse 73 11/11/2018 2:21 PM CDT Temperature 36.8 C (98.2 F) 11/11/2018 2:21 PM CDT Respiratory Rate 16 11/11/2018 2:21 PM CDT Oxygen Saturation - - Inhaled Oxygen Concentration - - Weight 46.3 kg (102 lb) 11/11/2018 2:21 PM CDT Height 154.9 cm (5' 1") 11/11/2018 2:21 PM CDT Body Mass Index 19.27 11/11/2018 2:21 PM CDT documented in this encounter Progress Notes Rosy Dill, RITO - 11/11/2018 2:15 PM CDT Chief complaint: Chief Complaint Patient presents with Care HPI Adalgisa Davalos is a 28 year old female is a @ 10w1d here for visit. Patient's last menstrual period was 09/01/2018 (approximate). Estimated Date of Delivery: 06/08/19 Pt complains of daily nausea and vomiting, has not tried any self treatment. She is taking PNV. She does not yet endorse FM. She denies any ctx/cramping, VB , LOF, POSADA, visual disturbance, vaginal discharge or dysuria. She denies any foreign travel. She also denies any physical, sexual or emotional abuse. Histories OB History Para Term AB Living 2 1 1 1 SAB TAB Ectopic Multiple Live Births 1 # Outcome Date GA Lbr Keshav/2nd Weight Sex Delivery Anes PTL Lv 2 Current 1 04/16/07 35w0d 4 lb 5 oz (1.956 kg) F CS-Unspec RATNA Past Medical History: Diagnosis Date Anemia [...] file Gets together: Not on file Attends worship service: Not on file Active member of [...] History Narrative Patient lives alone with daughter. Worship preference: Shinto. Pt has not pets in the home. Social History Substance and Sexual Activity Sexual Activity Yes Partners: Male control/protection: None Comment: last sexual intercourse 10/07/2018 Labs No new labs and I have reviewed the patient's labs. Radiology I have reviewed the patient's radiology. 11/09/18 dating US reviewed Allergies Adalgisa has No Known Allergies. Medications Adalgisa has a current medication list which includes the following prescription(s) : promethazine and pnv 67-iron ps-folate no.1-dha. Review of Systems Constitutional: Negative for appetite change, fatigue and fever. Eyes: Negative for visual disturbance. Respiratory: Negative. Cardiovascular: Negative for palpitations and leg swelling. Gastrointestinal: Positive for nausea and vomiting. Negative for abdominal pain , constipation and diarrhea. Genitourinary: Negative. Negative for dysuria, vaginal bleeding, vaginal discharge and pelvic pain. Musculoskeletal: Negative. Skin: Negative for rash. Neurological: Negative for dizziness, light-headedness and headaches. Psychiatric/Behavioral: Negative. BP 99/64 (BP Location: Right arm, Patient Position: Sitting, BP CUFF SIZE: Adult Medium) | Pulse 73 | Temp 36.8 C (98.2 F) (Oral) | Resp 16 | Ht 5' 1" (1.549 m) | Wt 102 lb (46.3 kg) | LMP 09/01/2018 (Approximate) | BMI 19.27 kg/m Pregravid BMI: 20.6 Physical Exam Vitals reviewed. Constitutional: She is oriented to person, place, and time. She appears well- developed and well-nourished. Pulmonary/Chest: Normal inspiratory effort. Neuro/Psychiatric: She has a normal mood and affect. She is oriented to person, place, and time. Assessment/Plan 1. High-risk in first trimester 10w1d - POCT URINALYSIS W/O SPECIFIC GRAVITY 2. History of delivery, currently Delivery planning at later gestation 3. History of delivery 35w d/t intolerance, no h/o PTL or PPROM 4. Rubella non-immune status, antepartum Offer vaccine . 5. Susceptible to varicella (non-immune), currently Offer vaccine . 6. Nausea and vomiting during prior to 22 weeks gestation 2lb weight loss, +2 ketones, discussed importance of hydration and when would need to go to ER for IV hydration. Home remedies reviewed and Rx sent. Instructed to take OTC vitamin B6 and doxylamine BID. Only take promethazine PRN for breakthrough N/V. - proMETHazine 25 mg tablet; Take 1 tablet by mouth every 4 (four) hours as needed for Nausea and Vomiting (N/V). Dispense: 30 tablet; Refill: 3 Return to clinic in 4 weeks. Medications as ordered. Reviewed patient instructions and provided printed copy. at 10w1d This visit did not involve counseling and coordination that comprised more than 50% of the visit time. documented in this encounter Plan of Treatment Date Type Specialty Care Team Description 12/09/2018 Routine Visit OB Satellites Rosy Dill FNP [address] [place] [address] [phone] Health Maintenance Due Date Last Done Comments [...] Associated Comments Diagnosis POCT URINALYSIS W/O Routine 11/11/2018 2:22 PM High-risk Results for this SPECIFIC GRAVITY CDT in first trimester procedure are in the results section. documented in this encounter Results POCT URINALYSIS W/O SPECIFIC GRAVITY (11/11/2018 2:22 PM CDT) POCT PH U 6 5 - 8 mg/dl POCT U LEUK EST neg Negative - Negative POCT U NIT neg Negative - Negative POCT U PROT trace Negative - Negative POCT U GLU neg Negative - Negative POCT U KETONE 2+ Negative - Negative POCT U BLD neg Negative - Negative Specimen Urine - URINE, CLEAN CATCH documented in this encounter Visit Diagnoses Diagnosis High-risk in first trimester - Primary History of delivery, currently Previous delivery, unspecified as to episode of care or not applicable History of delivery Rubella non-immune status, antepartum Other specified complication, antepartum Susceptible to varicella (non-immune), currently Supervision of other high-risk Nausea and vomiting during prior to 22 weeks gestation documented in this encounter Insurance Payer Benefit Plan / Subscriber ID Effective Phone Address Type Group [facility] xxxxxxxxx 2018-Pj [address] Medicaid HEALTH [employer] - [employer] [id number] MANAGED MEDICAID [place], [place] [id number] documented as of this encounter Advance Directives Name Relationship Healthcare Agent Relationship Communication Lety Davalos Aunt Primary healthcare agent
--- NOTE | 2019-04-21 23:33 | EDPHYS ---
Physician Documentation [facility] Name: Adalgisa Davalos Age: 29 yrs Sex: Female : 1990 Arrival Date: 04/21/2019 Time: 22:17 Bed 1 Private MD: ED Physician Vinay Echeverria HPI: 04/21 23:07 This 29 yrs old Female presents to ER via Ambulatory with complaints of Flu bebe Symptoms. 23:07 The estimated gestational age is 33 weeks. The patient or guardian reports cough, bebe described as mild. Severity of symptoms: At their worst the symptoms were mild. 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 - Coronavirus screen:: The patient has NOT traveled to [place], [place], or [place] in the past 14 days. Proceed with normal triage process as indicated. The patient has NOT had contact with known/suspected case of Coronavirus? Proceed with normal triage procedures. - Social history:: Smoking status: Patient/guardian denies using tobacco, the patient reports quitting approximately 2 years ago. - Ebola Screening: : No symptoms or risks identified at this time. ROS: 23:08 Constitutional: Negative for fever, chills, and weight loss, Eyes: Negative for injury, bebe pain, redness, and discharge, Neck: Negative for injury, pain, and swelling, Cardiovascular: Negative for chest pain, palpitations, and edema, Respiratory: Negative for shortness of breath, cough, wheezing, and pleuritic chest pain, Abdomen/GI: Negative for abdominal pain, nausea, vomiting, diarrhea, and constipation, Back: Negative for injury and pain, : Negative for injury, bleeding, discharge, and swelling, MS/Extremity: Negative for injury and deformity, Skin: Negative for injury, rash, and discoloration, Neuro: Negative for headache, weakness, numbness, tingling, and seizure, Psych: Negative for depression, anxiety, suicide ideation, homicidal ideation, and hallucinations, Allergy/Immunology: Negative for hives, rash, and allergies, Endocrine: Negative for neck swelling, polydipsia, polyuria, polyphagia, and marked weight changes, Hematologic/Lymphatic: Negative for swollen nodes, abnormal bleeding, and unusual bruising. 23:08 ENT: Positive for sore throat. Exam: 23:08 Constitutional: This is a well developed, well nourished patient who is awake, alert, bebe and in no acute distress. Head/Face: Normocephalic, atraumatic. Eyes: Pupils equal round and reactive to light, extra-ocular motions intact. Lids and lashes normal. Conjunctiva and sclera are non-icteric and not injected. Cornea within normal limits. Periorbital areas with no swelling, redness, or edema. ENT: Nares patent. No nasal discharge, no septal abnormalities noted. Tympanic membranes are normal and external auditory canals are clear. Oropharynx with no redness, swelling, or masses, exudates, or evidence of obstruction, uvula midline. Mucous membranes moist. Neck: Trachea midline, no thyromegaly or masses palpated, and no cervical lymphadenopathy. Supple, full range of motion without nuchal rigidity, or vertebral point tenderness. No Meningismus. Chest/axilla: Normal chest wall appearance and motion. Nontender with no deformity. No lesions are appreciated. Cardiovascular: Regular rate and rhythm with a normal S1 and S2. No gallops, murmurs, or rubs. Normal PMI, no JVD. No pulse deficits. Respiratory: Lungs have equal breath sounds bilaterally, clear to auscultation and percussion. No rales, rhonchi or wheezes noted. No increased work of breathing, no retractions or nasal flaring. Abdomen/GI: Soft, non-tender, with normal bowel sounds. No distension or tympany. No guarding or rebound. No evidence of tenderness throughout. Back: No spinal tenderness. No costovertebral tenderness. Full range of motion. Skin: Warm, dry with normal turgor. Normal color with no rashes, no lesions, and no evidence of cellulitis. MS/ Extremity: Pulses equal, no cyanosis. Neurovascular intact. Full, normal range of motion. Neuro: Awake and alert, GCS 15, oriented to person, place, time, and situation. Cranial nerves II-XII grossly intact. Motor strength 5/5 in all extremities. Sensory grossly intact. Cerebellar exam normal. Normal gait. Psych: Awake, alert, with orientation to person, place and time. Behavior, mood, and affect are within normal limits. 23:08 Abdomen/GI: Inspection: gravid appearance, is noted, Bowel sounds: normal, Palpation: abdomen is soft and non-tender, Liver: no appreciated palpable abnormalities, Hernia: Vital Signs: 22:42 BP 112 / 77; Pulse 111; Resp 18; Temp 98.2; Pulse Ox 100% ; Weight 52.62 kg; Height 5 rv ft. 1 in. (154.94 cm); 23:42 BP 114 / 76; Pulse 108; Resp 17; Pulse Ox 100% on R/A; rv 22:42 Body Mass Index 21.92 (52.62 kg, 154.94 cm) rv MDM: 22:30 Patient medically screened. [facility] 23:09 Data reviewed: vital signs, nurses notes, lab test result(s), EKG, radiologic studies. [facility] 04/21 22:31 Order name: Influenza Screen (a \T\ B); Complete Time: 23:31 [facility] 04/21 22:33 Order name: Strep 04/21 22:56 Order name: Group A Streptococcus Rapid Sc; Complete Time: 23:31 [facility] 04/21 23:06 Order name: FHT's; Complete Time: 23:16 [facility] 04/21 23:22 Order name: Throat Culture [facility] Administered Medications: 23:41 Drug: Augmentin 875 mg Route: PO; rv 23:41 Follow up: Response: Medication administered at discharge. rv Disposition: 04/21/19 23:32 Discharged to Home. Impression: Acute upper respiratory infection, unspecified, related conditions, unspecified, third trimester. - Condition is Stable. - Discharge Instructions: Upper Respiratory Infection, Adult, Cool Mist Vaporizer, Third Trimester of , [id number]-[id number]-[id number], Cough, Adult. - Prescriptions for Vitamin 27- 0.8 mg Oral Tablet - take 1 tablet by ORAL route once daily; 30 tablet. Augmentin 875- 125 mg Oral Tablet - take 1 tablet by ORAL route every 12 hours for 10 days; 14 tablet. - Medication Reconciliation Form, Thank You Letter, Antibiotic Education, Prescription Opioid Use form. - Follow up: Private Physician; When: 2 - 3 days; Reason: Recheck today's complaints, Continuance of care, Re-evaluation by your physician. - Problem is new. - Symptoms have improved. Signatures: Dispatcher [employer] Vinay Barroso MD MD cha Vicente, Ronaldo RN RN rv Corrections: (The following items were deleted from the chart) 23:43 23:32 04/21/2019 23:32 Discharged to Home. Impression: Acute upper respiratory rv infection, unspecified; related conditions, unspecified, third trimester. Condition is Stable. Discharge Instructions: Upper Respiratory Infection, Adult, Cool Mist Vaporizer, Third Trimester of , [id number], Cough, Adult. Prescriptions for Amoxicillin 500 mg Oral Capsule - take 1 capsule by ORAL route every 8 hours for 10 days; 30 tablet, Vitamin 27-0.8 mg Oral Tablet - take 1 tablet by ORAL route once daily; 30 tablet. and Forms are Medication Reconciliation Form, Thank You Letter, Antibiotic Education, Prescription Opioid Use. Follow up: Private Physician; When: 2 - 3 days; Reason: Recheck today's complaints, Continuance of care, Re-evaluation by your physician. Problem is new. Symptoms have improved. bebe
--- NOTE | 2019-04-21 23:33 | ER ---
Nurse's Notes [facility] Name: Adalgisa Davalos Age: 29 yrs Sex: Female : 1990 Arrival Date: 04/21/2019 Time: 22:17 Bed 1 Private MD: Diagnosis: Acute upper respiratory infection, unspecified; related conditions, unspecified, third trimester Presentation: 04/21 22:43 Presenting complaint: Patient states: I've been sick for couple of days now. body aches rv and sore throat, especially on the left side. and I have some left ear pain too. Transition of care: patient was not received from another setting of care. Onset of symptoms was April 20, 2019 at 08:00. Risk Assessment: Do you want to hurt yourself or someone else? Patient reports no desire to harm self or others. Initial Sepsis Screen: Does the patient meet any 2 criteria? No. Patient's initial sepsis screen is negative. Does the patient have a suspected source of infection? No. Patient's initial sepsis screen is negative. Care prior to arrival: None. 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 - Coronavirus screen:: The patient has NOT traveled to [place], [place], or [place] in the past 14 days. Proceed with normal triage process as indicated. The patient has NOT had contact with known/suspected case of Coronavirus? Proceed with normal triage procedures. - Social history:: Smoking status: Patient/guardian denies using tobacco, the patient reports quitting approximately 2 years ago. - Ebola Screening: : No symptoms or risks identified at this time. Screenin:47 Abuse screen: Denies threats or abuse. Denies injuries from another. Nutritional rv screening: No deficits noted. Tuberculosis screening: No symptoms or risk factors identified. Fall Risk None identified. Assessment: 22:46 General: Appears in no apparent distress. comfortable, Behavior is calm, cooperative. rv Pain: Complains of pain in sore throat and body aches. Neuro: Level of Consciousness is awake, alert, obeys commands, Oriented to person, place, time, situation. Cardiovascular: Patient's skin is warm and dry. Respiratory: Airway is patent. EENT: Throat is reddened has patchy exudate has enlarged tonsils. Vital Signs: 22:42 BP 112 / 77; Pulse 111; Resp 18; Temp 98.2; Pulse Ox 100% ; Weight 52.62 kg; Height 5 rv ft. 1 in. (154.94 cm); 23:42 BP 114 / 76; Pulse 108; Resp 17; Pulse Ox 100% on R/A; rv 22:42 Body Mass Index 21.92 (52.62 kg, 154.94 cm) rv Vitals: 23:19 Heart Tones: 150. ar5 ED Course: 22:17 Patient arrived in ED. [id number] 22:30 Vinay Echeverria MD is Attending Physician. bebe 22:33 Robb Dawson, RN is Primary Nurse. rv 22:45 Triage completed. rv 22:46 Arm band placed on Patient placed Patient notified of wait time. rv 22:47 Patient has correct armband on for positive identification. Pulse ox on. NIBP on. rv 23:42 No provider procedures requiring assistance completed. Patient did not have IV access rv during this emergency room visit. Administered Medications: 23:41 Drug: Augmentin 875 mg Route: PO; rv 23:41 Follow up: Response: Medication administered at discharge. rv Outcome: 23:32 Discharge ordered by . bebe 23:42 Discharged to home ambulatory, with family. rv 23:42 Condition: good 23:42 Discharge instructions given to patient, Instructed on discharge instructions, follow up and referral plans. medication usage, Demonstrated understanding of instructions, follow-up care, medications, Prescriptions given X 2. 23:43 Patient left the ED. rv Signatures: Vinay Echeverria MD MD cha Vicente, Ronaldo, RN RN Martha Peña ar Vale ClarkNazario
[2019-04-21] MEDS ORDERED: AMOX/K CLAV 875 MG TAB ONE (23:37)
[2019-04-21 23:54] VITALS: TEMP 98.2; O2SAT 100
[2019-04-21 23:55] VITALS: BP 114/76
== END 2019-04-21 23:43 | disposition home or self-care (01) ==
LOC: ER 22:14
DX: O99.513 Diseases of the respiratory system complicating pregnancy, third trimester (principal); J06.9 Acute upper respiratory infection, unspecified; Z3A.33 33 weeks gestation of pregnancy
CPT/HCPCS: 87070; 87081; 87804; 99283